=== PATIENT | female | born 1970 | race American Indian/Alaskan Native ===

== ENCOUNTER 2016-06-01 06:05 | Observation (INO) | payer OTHER ==
--- NOTE | 2016-05-26 10:05 | Anesthesia Consultation ---
Anesthesia Consult and Med Hx Date of service: 05/26/16 - Airway Anesthetic Teeth Evaluation: Good ROM Head & Neck: Adequate Mental/Hyoid Distance: Adequate Mallampati Class: Class II Intubation Access Assessment: Probably Good - Pre-Operative Health Status ASA Pre-Surgery Classification: ASA2 Proposed Anesthetic Plan: General Nerve Block: TAP - Pulmonary Hx Smoking: Yes (former 1/2 p x 25 years, quit 3 years ago) Hx Asthma: No COPD: No Hx Pneumonia: No (s/p PE 2014) Hx Sleep Apnea: (snoring) - Cardiovascular System Hx Hypertension: Yes (x 3 yrs) Hx Peripheral Vascular Disease: Yes (left LE swelling - venous insufficiency) - Central Nervous System Hx Psychiatric Problems: No - Endocrine Hx End Stage Renal Disease: No - Hematic Hx Anemia: Yes - Other Systems Hx Alcohol Use: Yes (occas) Hx Cancer: No Hx Obesity: Yes (BMI 36.1)
[2016-05-26 10:24] LABS: Basophils % (Auto) 0.7 % (0.0-1.8); Eosinophils % (Auto) 1.9 % (0.0-4.3); Mean Corpuscular HGB Conc 28 % (30-34); Platelet Count 467 K/mm3 (140-440); Red Blood Count 4.42 M/mm3 (3.65-5.03); White Blood Count 8.4 K/mm3 (4.5-11.0)
[2016-05-26 10:26] LABS: Hematocrit 26.4 % (30.3-42.9); Hemoglobin 7.3 gm/dl (10.1-14.3); Mean Corpuscular Hemoglobin 17 pg (28-32); Mean Corpuscular Volume 60 fl (79-97); Red Cell Distribution Width 20.4 % (13.2-15.2)
--- NOTE | 2016-05-31 17:28 | History and Physical Report ---
History of Present Illness Date of examination: 05/31/16 Date of admission: 06/01/2016 Chief complaint: dysfunctional bleeding and anemia History of present illness: 46y/o with symptomatic uterine fibroids and dysfunctional uterine bleeding. The patient's vaginal bleeding has been so significant that she has developed a significant iron deficiency anemia that has not been controlled with iron therapy. She also reports significant pain during her menses reports her menses is prolonged with the passage of clots and flooding. The patient has elected to undergo definitive surgical management Past History Past Medical History: hypertension, other (pulmonary embolism; uterine fibroids) Past Surgical History: no surgical history [employer] History: herpes, trichomonas Social history: single - Obstetrical History : 4 Para: 2 Hx # Term Pregnancies: 1 Number of Pregnancies: 1 Spontaneous Abortions: 0 Induced : 2 Number of Living Children: 2 Medications and Allergies Allergies Allergy/AdvReac Type Severity Reaction Status Date / Time No Known Allergies Allergy Verified 05/25/16 16:52 Home Medications Medication Instructions Recorded Confirmed Last Taken Type Lisinopril [Zestril TAB] 20 mg PO QDAY 12/26/14 05/25/16 02/01/16 History Ibuprofen [Motrin] 600 mg PO Q8H PRN #30 tablet 02/01/16 05/25/16 Unknown Rx RX: Aspirin 81 mg PO QDAY 02/01/16 05/25/16 Unknown History Iron Carb,Gl/FA/B12/C/Docusate 1 each PO DAILY 05/25/16 05/25/16 Unknown History [Ferralet 90 Dual-Iron Tablet] Active Meds: Active Medications Celecoxib (Celebrex) 200 mg PO PREOP NR Stop: 06/01/16 23:59 Famotidine (Pepcid) 20 mg IV PREOP NR Stop: 06/01/16 23:59 Fentanyl (Sublimaze) 100 mcg IV ONCE NR Stop: 06/01/16 23:59 Gabapentin (Neurontin) 600 mg PO PREOP NR Stop: 06/01/16 23:59 Lactated Ringer's (Lactated Ringers) 1,000 mls @ 100 mls/hr IV DIRECT ALVA Sodium Chloride (Nacl 0.9% 500 Ml) 500 mls @ 0 mls/hr IV ONCE NR PRN Reason: As Directed Stop: 05/31/16 23:59 Lidocaine (Xylocaine 1% 20 Ml) 10 ml INFILTRATI PREOP NR Stop: 06/01/16 23:59 Midazolam HCl (Versed) 2 mg IV PREOP NR Stop: 06/01/16 23:59 Sodium Chloride (Nacl P/F Vial (10 Ml)) 1 ml INFILTRATI PREOP NR Stop: 06/01/16 23:59 Review of Systems All systems: negative Constitutional: fatigue, weakness Genitourinary: vaginal bleeding, pelvic pain - Vital Signs Vital signs: Vital Signs Temp Pulse Resp BP 97.3 F L 74 14 140/88 05/26/16 09:20 05/26/16 09:20 05/26/16 09:20 05/26/16 09:20 Temp Pulse Resp BP Pulse Ox 97.3 F L 74 14 140/88 05/26/16 09:20 05/26/16 09:20 05/26/16 09:20 05/26/16 09:20 - Physical Exam Breasts: Positive: deferred Cardiovascular: Regular rate Lungs: Positive: Clear to auscultation Abdomen: Positive: normal appearance Uterus: Positive: other (enlarged with multiple masses) Results Result Diagrams: 05/26/16 09:35 All other labs normal. Assessment and Plan - Patient Problems (1) Leiomyoma Current Visit: Yes Status: Acute Plan to address problem: Scheduled for robotic hysterectomy and bilateral salpingectomy (2) Dysfunctional uterine bleeding Current Visit: Yes Status: Acute (3) Iron deficiency anemia Current Visit: Yes Status: Acute (4) Dysmenorrhea Current Visit: Yes Status: Acute
[~2016-06-01 06:05] MED LIST: ANCEF/STERILE WATER 2 GM/20 ML 20 ML IV SCH; NACL 0.9% 500 ML 500 ML IV NR; NEURONTIN PO NR
--- NOTE | 2016-06-01 06:52 | Anesthesia Day of Surgery ---
Anesthesia Day of Surgery - Day of Surgery Patient Examined: Yes Patient H&P Reviewed: Yes Patient is NPO: Yes
[2016-06-01] MEDS ORDERED: DECADRON ONE (06:54)
[2016-06-01] MEDS ORDERED: MARCAINE-EPI 0.5%-1:200,000 INFILTRATI ONE (06:54)
[2016-06-01] MEDS ORDERED: MARCAINE-EPI/PF 0.5%-1:200,000 INFILTRATI ONE (06:54)
[2016-06-01] MEDS ORDERED: XYLOCAINE 1% 20 mL INFILTRATI NR (07:00)
[2016-06-01] MEDS ORDERED: NACL P/F VIAL (10 ML) INFILTRATI NR (07:00)
[2016-06-01] MEDS ORDERED: LACTATED RINGERS 1,000 ML IV SCH (07:00)
[2016-06-01] MEDS ORDERED: MARCAINE 0.5% INFILTRATI NR (07:00)
[2016-06-01] MEDS ORDERED: SUBLIMAZE IV NR (07:00)
[2016-06-01] MEDS ORDERED: PEPCID IV NR (07:00)
[2016-06-01] MEDS: VERSED IV NR ×3 (07:02→07:12)
[2016-06-01] MEDS ORDERED: ZOFRAN IV PRN (07:17)
[2016-06-01] MEDS ORDERED: ZEMURON IV ONE (07:28)
[2016-06-01] MEDS ORDERED: XYLOCAINE MPF 2% ONE (07:28)
[2016-06-01] MEDS ORDERED: DIPRIVAN 10 MG/ML IV ONE (07:29)
[2016-06-01] MEDS ORDERED: NEOSPORIN GU IR ONE (09:20)
[2016-06-01] MEDS ORDERED: NACL 0.9% IR ONE ×2 (09:20)
[2016-06-01] MEDS ORDERED: ROBINUL ONE (09:29)
[2016-06-01] MEDS ORDERED: ZOFRAN ONE (09:29)
[2016-06-01] MEDS ORDERED: BLOXIVERZ ONE (09:29)
--- NOTE | 2016-06-01 10:01 | Operative Report ---
Operative Report Operative Report: Date of surgery: 06/01/2016 Preoperative diagnoses: Symptomatic uterine fibroids; dysfunctional uterine bleeding; dysmenorrhea; Anemia Postoperative diagnoses: Same as above Procedure: Robotic hysterectomy; bilateral salpingectomy Surgeon: Anne Sandoval M.D. Scheduling Coordinator: Wyatt Rogers Anesthesia: Gen. endotracheal anesthesia Estimated blood loss: 50 mL Pathology: Uterus, cervix, bilateral tubes Indication: 46-year-old with a history of symptomatic uterine fibroids. The patient also experienced significant dysfunctional uterine bleeding which subsequently caused her on deficiency anemia. The patient was transfused 2 units of blood preoperatively secondary to her anemia. Procedure: The patient was taken to the operating room and given general endotracheal anesthesia without complication. She is prepped and draped in a normal sterile fashion. A bivalve speculum was placed in the patient's vagina and a single- tooth tenaculum placed on the anterior lip of the cervix. The uterus was sounded with the uterine sound. A [employer] uterine manipulator was placed in the bivalve speculum was then removed. Attention was then turned to the patient's abdomen where a millimeter supra umbilical skin incision was then made. A Veress needle was placed and peritoneal entry was verified water-filled syringe. Insufflation of the peritoneal cavity was performed with CO2 gas. The 12 mm trocar was then placed under direct visualization. An additional 8 mm trocar was placed on the patient's left and right lateral side just opposite of the supraumbilical trocar. An additional 5 mm right lateral trocar was then placed as the accessory port. The patient was then placed in steep Trendelenburg. The da Laya robot was then engaged. A fenestrated forcep was placed in arm 2 and a vessel sealer was placed in arm 1. The surgeon then transferred to the surgical console. The mesosalpinx was then isolated on the right. The vessel sealer was used to coagulate the mesosalpinx which was then transected. The tube was transected from the ovary. The tubo-ovarian ligament was then coagulated and transected. The round ligament was then coagulated and transected also. The vesicouterine peritoneum was then entered from the patient 's right side. The uterine vessels were then coagulated with the vessel sealer. The vessels were then transected . Attention was then turned to the patient's left side where the tubo-ovarian ligament and mesosalpinx were again isolated coagulated and transected. The vesical peritoneum was then entered from the left and joined in the midline. Peritoneum was reflected off of the lower uterine segment. Uterine vessels were then coagulated and then transected. The blood supply to the uterus was adequately contained, a posterior colpotomy was made. The V care ring was visualized. Posterior colpotomy was created with the monopolar scissors. The incision was continued circumferentially until anterior colpotomy was made. The cervix and uterus were amputated from the vaginal cuff. The surgeon's then left the console in order to remove the uterus vaginally. The cervix was grasped with a single toothed tenaculum. The cervix was then bivalved. Morcellation of the uterus was performed vaginally. The uterus was then removed along with the tubes bilaterally through the vagina and a warm laparotomy sponge was placed and maintain the pneumoperitoneum. Surgeon then transferred back to this the surgical console. The vaginal cuff was then closed robotically in a running fashion with V lock suture. Irrigation of the pelvis was performed. Tisseel was applied to the incision. The supraumbilical 12 mm trocar site was closed with the Guido Santiago device. The skin was then reapproximated with 4-0 Monocryl. The tissue was sent to pathology which included the cervix, uterus, bilateral tubes. The patient was then successfully extubated. She was then taken to the recovery room in stable condition. All sponge laps and needle counts were correct x2.
[2016-06-01] MEDS ORDERED: NARCAN 0.4 MG/1 ML IV PRN (10:07)
[2016-06-01] MEDS ORDERED: TYLENOL PO PRN (10:07)
[2016-06-01] MEDS ORDERED: PERCOCET 5/325 PO PRN (10:07)
[2016-06-01] MEDS ORDERED: MILK OF MAGNESIA PO PRN (10:07)
[2016-06-01] MEDS ORDERED: MORPHINE PCA 30MG/30ML IV SCH (11:00)
[2016-06-01] MEDS ORDERED: D5LR 1,000 ML IV SCH (11:00)
[2016-06-01] MEDS ORDERED: LACTATED RINGERS 1,000 ML ONE (11:06)
[2016-06-01] MEDS: DILAUDID IV PRN ×2 (11:52→12:10)
[2016-06-01] MEDS ORDERED: DILAUDID ONE (11:52)
--- NOTE | 2016-06-01 12:26 | Post Anesthesia Evaluation ---
- Post Anesthesia Evaluation Patient Participated: Yes Airway Patent: Yes Stable Respiratory Function: Yes Temp > 96.8F: Yes Pain Manageable: Yes Adequeate Hydration: Yes Anesthesia Complications: No Block Receding Appropriately: Not Applicable
[2016-06-01] MEDS: LOVENOX SUB-Q SCH (22:45)
[2016-06-01] MEDS: MOTRIN PO PRN (22:45)
[2016-06-02] MEDS ORDERED: PEPCID PO SCH (01:00)
[2016-06-02] MEDS: MOTRIN PO PRN (05:30)
--- NOTE | 2016-06-02 07:06 | Admit Criteria Form ---
Admission Criteria Documentation: AMBULATORY SURGERY EXCEPTION CRITERIA Ambulatory Surgery Exception Criteria ( Place 'X' for any and all applicable criteria): Surgery or procedure performed on ambulatory basis may require inpatient stay for[A] ANY ONE of the following(1)(2)(3)(4)(5)(6)(7)(8)(9): [X] I. A preoperative situation, condition, or finding that warrants inpatient stay as indicated by ANY ONE of the following: [X] a) Inpatient care needed because of severity of a disease or condition rather than the surgery (eg, severe cardiac or respiratory disease, severe infection) (15) (16 ) (17) (18) [] b) Emergent procedure (eg, angioplasty for acute ischemia)(19) [] c) Complex surgical approach or situation as indicated by ANY ONE of the following(3): [] i) Open approach needed instead of usual endoscopic, transcatheter, or other less invasive procedure [] ii) Difficult approach because of previous operation [] iii) Airway monitoring required after open neck procedures(20)(21) [] iv) Large mass requiring unusually extensive dissection [] v) Additional complicating feature requiring inpatient care (eg, drain management)(22(23): [] d) Major surgery in a pt with high anesthetic risk as indicated by ANY ONE of the following (2)(3)(5)(7)(8): [] i) ASA risk class III or higher (severe systemic disease impairing function) [D] [] ii) Advanced age (eg, older than 85 years)(14)(24) [] iii) Symptomatic heart failure(25) [] iv) Symptomatic asthma or COPD(8)(21) [] v) Morbid obesity with hemodynamic or respiratory problems(20)( 21)(26)(27) [] vi) Obstructive sleep apnea(20)(21) [] vii) Former premature infants who are younger than 60 weeks [] viii) High risk for severe postoperative abnormalities (eg, severe postoperative hypocalcemia after parathyroidectomy for severe hyperparathyroidism)(27)( 28) [] ix) Unstable angina(25) [] e) Drug-related risk requiring inpatient stay as indicated by ANY ONE of the following(5)(10)(14)(32)(33) [] i) Procedure requires discontinuing drugs or other therapy (eg , antiarrhythmic medication, antiseizure medication), which necessitates inpatient observation or treatment.(18)(31) [] ii) Major surgery and high risk drug use as indicated by ANY ONE of the following: [] 1) Active abuse of cocaine or similar drug [] 2) Monoamine oxidase inhibitor use [] 3) Other drug identified as posing risk [] f) Inadequate outpatient care situation as indicated by ANY ONE of the following(5)(10)(14)(32)(33) [] i) Patient lives remote from medical facility and procedure has urgent complication potential, and temporary nearby residence cannot be arranged [] ii) Patient will have postprocedure incapacitation and inadequate assistance at home, or alternative level of care cannot be arranged. [] iii) Patient will have long general anesthesia or procedure side effect resolution time, and competent person to stay with patient on first postoperative night at home or alternative level of care cannot be arranged. []iv) Other inadequate outpatient situation that cannot be handled by other means [X] II. A perioperative event, condition, or finding that warrants inpatient stay as indicated by ANY ONE of the following (1)(2)(3): [] a) Inadequate physiologic recovery: cardiovascular, respiratory, or hemodynamic status not normal or near preoperative baseline(18) [] b) Hemodynamic instability [] c) Patient not alert with near normal or baseline mental status [] d) Temperature not normal or as expected and not appropriate for outpatient treatment of condition [] e) Ambulatory or appropriate activity level status not yet achieved post procedure [E](34)(35)(36) [] f) Operative site not appropriate (eg, unexpected or excessive drainage or bleeding) [X] g) Postoperative effects not resolved or adequately managed (eg, significant pain or vomiting not appropriate for outpatient or next level of care)(10)(12) [] h) Complicating features requiring inpatient care as indicated by ANY ONE of the following(37): [] i) Severe complications of procedure (eg, bowel injury, airway compromise, vascular injury,severe hemorrhage) [] ii) Extensive (eg, dissection far beyond usual scope of procedure ) or prolonged (eg, 120 minutes beyond usual) surgery needed requiring inpatient postoperative care [] iii) Conversion to an open or complex procedure that requires inpatient care (eg, open vs laparoscopic cholecystectomy, abdominal vs vaginal hysterectomy)(38) [] iv) Comorbid condition or test result identified during or post procedure that requires inpatient care (7) [] v) Malignant hyperthermia(30) [] vi) Other complicating feature requiring inpatient care(22)(23) Inpatient stay may be needed until ALL of the following are present (1)(2)(3)(4) (5)(6)(10)(14)(33)(40): []a) Physiologic recovery: cardiovascular, respiratory, and hemodynamic status normal or near preoperative baseline []b) Hemodynamic stability []c) Patient alert, with near normal or baseline mental status []d) Temperature appropriate: patient afebrile or temperature appropriate for outpt treatment of condition []e) Activity level appropriate: ambulatory or appropriate activity level post procedure []f) Operative site appropriate as indicated by ALL of the following: []i) Site dry or with expected drainage []ii) Any blood noted is as expected for procedure. []g) Postoperative effects resolved or managed as indicated by ALL of the following: []i) Pain management appropriate for outpatient (or next level of) care(10) []ii) Minimal nausea and vomiting: if present, successfully treated with oral medication(12) []iii) Headache, dizziness, or drowsiness (if present) are mild. []h) Voiding status acceptable as indicated by ANY ONE of the following: []i) Voiding spontaneously []ii) No voiding but instructions given for follow-up in 6 to 8 hours []iii) Urinary catheter in place, and instructions given for follow-up []i) Complicating features requiring inpatient care manageable at a lower level of care(37) []j) Comorbid conditions manageable at a lower level of care(37) The original [employer] [facility] content created by [employer] has been revised. The portions of the content which have been revised are identified through the use of italic text or in bold, and [facility] has neither reviewed nor approved the modified material. All other unmodified content is copyright [employer] [facility]. Please see references footnoted in the original [employer] [facility] edition 2016 Admission Criteria Met: Yes
[2016-06-02 07:20] LABS: Hematocrit 32.8 % (30.3-42.9); Hemoglobin 9.3 gm/dl (10.1-14.3)
[2016-06-02] MEDS: LOVENOX SUB-Q SCH (10:19)
--- NOTE | 2016-06-02 15:32 | Progress Note ---
Subjective Date of service: 06/02/16 Interval history: 1st POD after robotic hysterectomy Patient is in the bed, comfortable. Pain is well controlled with pain meds. Ambulated well. No nausea or vomiting. No anesthesia complications Objective - Constitutional Vitals: Vital Signs - 12hr 06/02/16 06/02/16 06/02/16 04:00 04:35 05:30 Temperature 98.4 F Pulse Rate [ 70 Right] Respiratory 18 20 16 Rate Blood Pressure 142/77 [Right Arm] 06/02/16 06/02/16 06/02/16 06:00 07:10 08:32 Temperature 98.4 F Pulse Rate [ 76 Right] Respiratory 18 18 18 Rate Blood Pressure 101/58 [Right Arm] 06/02/16 11:46 Temperature 99.0 F Pulse Rate [ 74 Right] Respiratory 18 Rate Blood Pressure 126/70 [Right Arm] - Labs CBC & Chem 7: 06/02/16 05:52 Labs: Abnormal lab results 05/26/16 06/02/16 Range/Units 09:35 05:52 Hgb 9.3 L (10.1-14.3) gm/dl Crossmatch See Detail
--- NOTE | 2016-06-02 17:05 | Progress Note ---
Assessment and Plan - Patient Problems (1) Leiomyoma Current Visit: Yes Status: Acute Plan to address problem: Patient doing well Discharge home (2) Dysfunctional uterine bleeding Current Visit: Yes Status: Acute (3) Iron deficiency anemia Current Visit: Yes Status: Acute (4) Dysmenorrhea Current Visit: Yes Status: Acute Subjective - Subjective Date of service: 06/02/16 Interval history: Patient reports doing well. She has tolerated her diet without complication. Her pain is currently being well controlled. Patient reports: appetite normal, voiding normally, pain well controlled Objective - Vital Signs Latest vital signs: Vital Signs Temp Pulse Resp BP 06/02/16 11:46 99.0 F 74 18 126/70 06/02/16 08:32 98.4 F 76 18 101/58 06/02/16 07:10 18 06/02/16 06:00 18 06/02/16 05:30 16 06/02/16 04:35 98.4 F 70 20 142/77 06/02/16 04:00 18 06/02/16 02:00 18 06/02/16 00:00 98.8 F 73 20 136/72 06/01/16 22:45 18 06/01/16 22:00 18 06/01/16 20:00 98.4 F 74 20 143/74 Intake and Output 06/02/16 06/02/16 06/02/16 06:59 14:59 22:59 Intake Total 1355 440 Output Total 1500 250 Balance -145 190 Intake: IV 875 D5lr 1,000 ml @ 125 mls/ 875 hr IV DIRECT ALVA Rx#: [id number] Oral 480 320 Intake, Free Water 120 Output: Urine 1500 250 Indwelling Catheter 1500 Void 250 Other: Total, Intake Amount 240 200 Total, Output Amount 600 250 - Exam Abdomen: Present: normal appearance, soft Incision: Present: normal, dry - Labs Labs: Abnormal lab results 05/26/16 06/02/16 Range/Units 09:35 05:52 Hgb 9.3 L (10.1-14.3) gm/dl Crossmatch See Detail
--- NOTE | 2016-06-02 17:07 | Discharge Summary ---
Providers - Providers Date of Admission: 06/01/16 10:08 Date of discharge: 06/02/16 Attending physician: VIKI BORDEN Primary care physician: AMARJIT WOLF Hospitalization Reason for admission: other (symptomatic uterine fibroids) Procedure: other (robotic hysterectomy and bilateral salpingectomy) Incision: normal, dry Discharge diagnosis: other (symptomatic uterine fibroids; dysfunctional uterine bleeding) Hospital course: The patient was admitted the day of surgery and underwent a robotic hysterectomy and bilateral salpingectomy. Preoperatively the patient was transfused 2 units of packed red blood cells secondary to severe iron deficiency anemia. Please see operative note for details of surgery. Her postoperative course was uneventful. The patient was discharged home on anticoagulation therapy secondary to her history of pulmonary embolism Condition at discharge: Good Disposition: DISCHARGED TO HOME OR SELFCARE - Discharge Diagnoses (1) Leiomyoma Status: Acute (2) Dysfunctional uterine bleeding Status: Acute (3) Iron deficiency anemia Status: Acute (4) Dysmenorrhea Status: Acute Plan - Discharge Medications Prescriptions: Enoxaparin [Lovenox] 40 mg SQ QDAY #30 syringe Ibuprofen [Motrin] 800 mg PO Q8HR PRN #60 tablet PRN Reason: Pain Oxycodone HCl/Acetaminophen [Percocet 10/325 mg] 1 each PO Q6HR PRN #45 tablet PRN Reason: Pain - Provider Discharge Summary Activity: no sex for 6 weeks, no heavy lifting 4 weeks, no strenuous exercise Diet: routine Instructions: routine Additional instructions: [] Smoking cessation referral if applicable(refer to patient education folder for contact #) [] Refer to [facility] Booklet Call your doctor immediately for: * Fever > 100.5 * Heavy vaginal bleeding ( >1 pad per hour) * Severe persistent headache * Shortness of breath * Reddened, hot, painful area to leg or breast * Drainage or odor from incision. * Keep incision clean and dry at all times and follow doctor's instructions regarding bathing/showering Follow-up in [address] Barillas
[2016-06-02 17:19] VITALS: BP 126/84
[2016-06-03] MEDS ORDERED: LOVENOX SUB-Q SCH (10:00)
== END 2016-06-02 18:00 | disposition home or self-care (01) ==
LOC: OR 06:05 → OB 10:08
PROVIDERS: ADMIT Obstetrics & Gynecology; ATTEND Obstetrics & Gynecology
DX: D21.9 Benign neoplasm of connective and other soft tissue, unspecified (principal); N93.8 Other specified abnormal uterine and vaginal bleeding; D50.9 Iron deficiency anemia, unspecified; N94.6 Dysmenorrhea, unspecified; I10 Essential (primary) hypertension
CPT/HCPCS: 36415; 58554; 64450; 84703; 85014; 85018; 85025; 86850; 86900; 86901; 86920; 88305; 88307; 96372; 96374; 96375; A4217; C9250; G0378; J0690; J1100; J1170; J1650; J2250; J2270; J2405; J2704; J2710; J3010; J7120; J7121; P9016

== ENCOUNTER 2019-09-14 11:05 | Emergency (ER) | payer SELFPAY ==
--- NOTE | 2019-09-14 14:12 | Vascular Lab Report ---
DUPLEX DOPPLER LOWER EXTREMITY VEINS, RIGHT INDICATION: pain swelling to right thigh. TECHNIQUE: Duplex doppler imaging was performed through the veins of the right lower extremity using venous comp ression and other maneuvers. COMPARISON: None available. FINDINGS: Common Femoral vein: Negative. Superficial Femoral vein: Negative. Popliteal vein: Negative. Calf veins: Negative. Additional findings: None. IMPRESSION: 1. No sonographic evidence for DVT in the right lower extremity. Signer Name: Juan Stewart MD Signed: 09/14/2019 2:07 PM Workstation Name: [employer]
--- NOTE | 2019-09-14 15:04 | Emergency Department Report ---
ED General Adult HPI - General Chief complaint: Extremity Injury, Lower Stated complaint: RIGHT LEG PAIN PUI?: No Time Seen by Provider: 09/14/19 11:58 Source: patient Mode of arrival: Ambulatory Limitations: No Limitations - History of Present Illness Initial comments: This is a 49-year-old female presents to the ED today complaining of right hip pain for the past day. She denies any injury or trauma to the leg. Patient states that pain is tingling sensation and sometimes itching in nature. Patient states she took Benadryl with no relief. Patient noted that she did have a DVT some years ago that ended up being a PE. Patient scared that this could be what same thing. Patient denies any shortness of breath, fever, heavy lifting. Patient states she has been more docile since she has been laid off work. She denies difficulty walking or inability to walk. She states since that she noticed lower back pain that began this morning. - Related Data Home Medications Medication Instructions Recorded Confirmed Last Taken lisinopriL [Zestril TAB] 20 mg PO QDAY 12/26/14 05/25/16 06/01/16 05:00 Aspirin 81 mg PO QDAY 02/01/16 05/25/16 1 Week Ago ~05/25/16 Iron Carb,Gl/FA/B12/C/Docusate 1 each PO DAILY 05/25/16 05/25/16 06/01/16 05:00 [Ferralet 90 Dual-Iron Tablet] Previous Rx's Medication Instructions Recorded Last Taken Type Ibuprofen [Motrin] 600 mg PO Q8H PRN #30 tablet 02/01/16 1 Week Ago Rx ~05/25/16 Enoxaparin [Lovenox] 40 mg SQ QDAY #30 syringe 06/02/16 Unknown Rx Ibuprofen [Motrin] 800 mg PO Q8HR PRN #60 tablet 06/02/16 Unknown Rx Oxycodone HCl/Acetaminophen 1 each PO Q6HR PRN #45 tablet 06/02/16 Unknown Rx [Percocet 10/325 mg] Diclofenac Dr [Brenda Bain] 75 mg PO BID #30 tablet 09/14/19 Unknown Rx Allergies Allergy/AdvReac Type Severity Reaction Status Date / Time No Known Allergies Allergy Verified 05/25/16 16:52 ED Review of Systems ROS: Stated complaint: RIGHT LEG PAIN Other details as noted in HPI Comment: All other systems reviewed and negative ED Past Medical Hx - Past Medical History Previous Medical History?: Yes Hx Hypertension: Yes (x 3 yrs) Hx Congestive Heart Failure: No Hx Diabetes: No Hx Pulmonary Embolism: Yes (2014) Hx Asthma: No Hx COPD: No Hx HIV: No Additional medical history: Blood Clot in Lung 11/2014 - Surgical History Past Surgical History?: No - Social History Smoking Status: Current Every Day Smoker Substance Use Type: Alcohol - Medications Home Medications: Home Medications Medication Instructions Recorded Confirmed Last Taken Type lisinopriL [Zestril TAB] 20 mg PO QDAY 12/26/14 05/25/16 06/01/16 05:00 History Aspirin 81 mg PO QDAY 02/01/16 05/25/16 1 Week Ago History ~05/25/16 Ibuprofen [Motrin] 600 mg PO Q8H PRN #30 tablet 02/01/16 05/25/16 1 Week Ago Rx ~05/25/16 Iron Carb,Gl/FA/B12/C/Docusate 1 each PO DAILY 05/25/16 05/25/16 06/01/16 05:00 History [Ferralet 90 Dual-Iron Tablet] Enoxaparin [Lovenox] 40 mg SQ QDAY #30 syringe 06/02/16 Unknown Rx Ibuprofen [Motrin] 800 mg PO Q8HR PRN #60 tablet 06/02/16 Unknown Rx Oxycodone HCl/Acetaminophen 1 each PO Q6HR PRN #45 tablet 06/02/16 Unknown Rx [Percocet 10/325 mg] Diclofenac Dr [Voltaren Dr] 75 mg PO BID #30 tablet 09/14/19 Unknown Rx ED Physical Exam - General Limitations: No Limitations General appearance: alert, in no apparent distress - Head Head exam: Present: atraumatic, normocephalic - Eye Eye exam: Present: normal appearance - ENT ENT exam: Present: mucous membranes moist - Neck Neck exam: Present: normal inspection - Respiratory Respiratory exam: Present: normal lung sounds bilaterally. Absent: respiratory distress - Cardiovascular Cardiovascular Exam: Present: regular rate, normal rhythm. Absent: systolic murmur, diastolic murmur, rubs, gallop - GI/Abdominal GI/Abdominal exam: Present: soft, normal bowel sounds - Extremities Exam Extremities exam: Present: normal inspection - Back Exam Back exam: Present: normal inspection - Neurological Exam Neurological exam: Present: alert, oriented X3 - Psychiatric Psychiatric exam: Present: normal affect, normal mood - Skin Skin exam: Present: warm, dry, intact, normal color. Absent: rash ED Course Vital Signs 09/14/19 11:09 Temperature 98.3 F Pulse Rate 72 Respiratory 20 Rate Blood Pressure 155/81 O2 Sat by Pulse 100 Oximetry ED Medical Decision Making - Radiology Data Radiology results: report reviewed, image reviewed No signs of DVT. No abnormality - Medical Decision Making 49-year-old female presents with sciatic pain of the right thigh. Doppler ultrasounds were completed and was normal. Discussed this findings with the patient. Discussed with patient follow-up with primary care physician. Discussed continued pain relief medication. Patient understand instructions and states will follow-up. Critical care attestation.: If time is entered above; I have spent that time in minutes in the direct care of this critically ill patient, excluding procedure time. ED Disposition Clinical Impression: Myalgia, Sciatic leg pain Disposition: TO HOME OR SELFCARE Is pt being admited?: No Does the pt Need Aspirin: No Condition: Stable Instructions: Trigger Point Pain (ED), Lumbar Radiculopathy (ED), Musculoskeletal Pain (ED) Additional Instructions: Make sure to follow up with the primary care physician as discussed. Take all your medications as you've been prescribed. If you have any worsening symptoms or develop new symptoms please return to ED immediately. Prescriptions: Bladimir Bain [Voltaren ] 75 mg PO BID #30 tablet Referrals: AMARJIT WOLF MD [Primary Care Provider] - 3-5 Days Forms: Work/School Release Form(ED) Time of Disposition: 15:09
== END 2019-09-14 15:30 | disposition home or self-care (01) ==
LOC: ED 11:05
DX: M54.31 Sciatica, right side (principal); I10 Essential (primary) hypertension; F17.200 Nicotine dependence, unspecified, uncomplicated; Z86.711 Personal history of pulmonary embolism; Z79.01 Long term (current) use of anticoagulants; Z79.899 Other long term (current) drug therapy

== ENCOUNTER 2021-01-02 11:36 | Emergency (ER) | payer OTHER, SELFPAY ==
[2021-01-02 12:29] VITALS: BP 141/79
--- NOTE | 2021-01-02 14:46 | Emergency Department Report ---
ED Extremity Problem HPI - General Chief complaint: Extremity Injury, Lower Stated complaint: POSS BLOOD CLOT Time Seen by Provider: 01/02/21 14:12 Source: patient Mode of arrival: Ambulatory Limitations: No Limitations - History of Present Illness Initial comments: Patient is a 50-year-old female presents emergency room complaints of left leg pain that began 3 days ago. She states that 3 days ago she accidentally dropped a bottle of essential oil on her left dorsal foot. She states that the glass did not break. She states that she began having some swelling to the foot which radiated to the ankle. She states then she noticed some discomfort to her left calf and thought she might have some swelling to her left lower leg. Patient states that she was concerned due to having a history of a PE in 2014. She states that when she had the PE she was on control at that time. Patient is not on any control or hormone replacement therapy and is not taking any hormones. She has had no recent long car or plane ride. No recent surgery. Past medical history of hypertension. No allergies to medications. - Related Data Home Medications Medication Instructions Recorded Confirmed Last Taken lisinopriL [Zestril TAB] 20 mg PO QDAY 12/26/14 05/25/16 06/01/16 05:00 Aspirin 81 mg PO QDAY 02/01/16 05/25/16 1 Week Ago ~05/25/16 Iron Carb,Gl/FA/B12/C/Docusate 1 each PO DAILY 05/25/16 05/25/16 06/01/16 05:00 [Ferralet 90 Dual-Iron Tablet] Previous Rx's Medication Instructions Recorded Last Taken Type Ibuprofen [Motrin] 600 mg PO Q8H PRN #30 tablet 02/01/16 1 Week Ago Rx ~05/25/16 Enoxaparin [Lovenox] 40 mg SQ QDAY #30 syringe 06/02/16 Unknown Rx Ibuprofen [Motrin] 800 mg PO Q8HR PRN #60 tablet 06/02/16 Unknown Rx Oxycodone HCl/Acetaminophen 1 each PO Q6HR PRN #45 tablet 06/02/16 Unknown Rx [Percocet 10/325 mg] Diclofenac Dr [Brenda Bain] 75 mg PO BID #30 tablet 09/14/19 Unknown Rx Naproxen 375 mg PO BID PRN #14 tablet 01/02/21 Unknown Rx Allergies Allergy/AdvReac Type Severity Reaction Status Date / Time No Known Allergies Allergy Verified 05/25/16 16:52 ED Review of Systems ROS: Stated complaint: POSS BLOOD CLOT Other details as noted in HPI Comment: All other systems reviewed and negative ED Past Medical Hx - Past Medical History Previous Medical History?: Yes Hx Hypertension: Yes (x 3 yrs) Hx Congestive Heart Failure: No Hx Diabetes: No Hx Pulmonary Embolism: Yes (2014) Hx Asthma: No Hx COPD: No Hx HIV: No Additional medical history: Blood Clot in Lung 11/2014 - Surgical History Past Surgical History?: Yes Additional Surgical History: Partial hysterectomy - Social History Smoking Status: Current Every Day Smoker Substance Use Type: Alcohol - Medications Home Medications: Home Medications Medication Instructions Recorded Confirmed Last Taken Type lisinopriL [Zestril TAB] 20 mg PO QDAY 12/26/14 05/25/16 06/01/16 05:00 History Aspirin 81 mg PO QDAY 02/01/16 05/25/16 1 Week Ago History ~05/25/16 Ibuprofen [Motrin] 600 mg PO Q8H PRN #30 tablet 02/01/16 05/25/16 1 Week Ago Rx ~05/25/16 Iron Carb,Gl/FA/B12/C/Docusate 1 each PO DAILY 05/25/16 05/25/16 06/01/16 05:00 History [Ferralet 90 Dual-Iron Tablet] Enoxaparin [Lovenox] 40 mg SQ QDAY #30 syringe 06/02/16 Unknown Rx Ibuprofen [Motrin] 800 mg PO Q8HR PRN #60 tablet 06/02/16 Unknown Rx Oxycodone HCl/Acetaminophen 1 each PO Q6HR PRN #45 tablet 06/02/16 Unknown Rx [Percocet 10/325 mg] Diclofenac Dr [Voltaren Dr] 75 mg PO BID #30 tablet 09/14/19 Unknown Rx Naproxen 375 mg PO BID PRN #14 tablet 01/02/21 Unknown Rx ED Physical Exam - General Limitations: No Limitations General appearance: alert, in no apparent distress - Head Head exam: Present: atraumatic, normocephalic - Eye Eye exam: Present: normal appearance - ENT ENT exam: Present: mucous membranes moist - Respiratory Respiratory exam: Absent: respiratory distress, accessory muscle use - Extremities Exam Extremities exam: Present: other (no ttp of the LLE, no calf ttp, no deformity, no ecchymosis, no edema, neurovascularly intact) - Neurological Exam Neurological exam: Present: alert, oriented X3 - Psychiatric Psychiatric exam: Present: normal affect, normal mood - Skin Skin exam: Present: warm, dry, intact ED Course Vital Signs 01/02/21 01/02/21 12:27 17:24 Temperature 98.8 F Pulse Rate 71 76 Respiratory 18 Rate Blood Pressure 141/79 O2 Sat by Pulse 99 100 Oximetry ED Medical Decision Making - Radiology Data Radiology results: report reviewed Ordering Physician: LEE JEFF Date of Service: 01/02/21 Procedure(s): XR foot 3+V LT Accession Number(s): [id number] cc: LEE JEFF Fluoro Time In Minutes: LEFT FOOT 3 VIEW(S) INDICATION / CLINICAL INFORMATION: left foot pain COMPARISON: None available. FINDINGS: BONES / JOINT(S): No acute fracture or subluxation. No significant arthritis. Small accessory medial navicular ossicle. SOFT TISSUES: No significant abnormality. ADDITIONAL FINDINGS: None. Signer Name: Cristal Hernandez MD Signed: 01/02/2021 2:43 PM Workstation Name: [id number] Transcribed By: DT Dictated By: Jered Hernandez MD Electronically Authenticated By: Jered Hernandez MD Signed Date/Time: 01/02/211442 DD/ 1442 TD/TT: DUPLEX DOPPLER LOWER EXTREMITY VEINS, LEFT INDICATION / CLINICAL INFORMATION: left leg pain. TECHNIQUE: Duplex doppler imaging was performed through the veins of the left lower extremity using venous compression and other maneuvers. COMPARISON: None available. FINDINGS: LEFT COMMON FEMORAL VEIN: Negative. LEFT FEMORAL VEIN: Negative. LEFT POPLITEAL VEIN: Negative. LEFT CALF VEINS: Negative. ADDITIONAL FINDINGS: None. IMPRESSION: 1. No sonographic evidence for DVT in the left lower extremity. Signer Name: Cristal Hernandez MD Signed: 01/02/2021 4:00 PM Workstation Name: [id number] - Medical Decision Making Patient is a 50-year-old female presents emergency room complaints of left leg pain that began 3 days ago. She states that 3 days ago she accidentally dropped a bottle of essential oil on her left dorsal foot. She states that the glass did not break. She states that she began having some swelling to the foot which radiated to the ankle. She states then she noticed some discomfort to her left calf and thought she might have some swelling to her left lower leg. Patient states that she was concerned due to having a history of a PE in 2014. She states that when she had the PE she was on control at that time. Patient is not on any control or hormone replacement therapy and is not taking any hormones. She has had no recent long car or plane ride. No recent surgery. Past medical history of hypertension. No allergies to medications. Vitals are stable. No hypoxia, no tachycardia. On exam:no ttp of the LLE, no calf ttp, no deformity, no ecchymosis, no edema, neurovascularly intact. X-ray left foot: BONES / JOINT(S): No acute fracture or subluxation. No significant arthritis. Small accessory medial navicular ossicle. SOFT TISSUES: No significant abnormality. ADDITIONAL FINDINGS: None. Ultrasound left lower extremity:1. No sonographic evidence for DVT in the left lower extremity. Patient given prescription for naproxen. Advised patient Please take medication as prescribed as needed. Follow-up with a primary care doctor. Return to emergency room for any new or worsening symptoms. Critical care attestation.: If time is entered above; I have spent that time in minutes in the direct care of this critically ill patient, excluding procedure time. ED Disposition Clinical Impression: Left foot pain, Left leg pain Disposition: 01 HOME / SELF CARE / HOMELESS Is pt being admited?: No Does the pt Need Aspirin: No Condition: Stable Instructions: Foot Pain Additional Instructions: Please take medication as prescribed as needed. Follow-up with a primary care doctor. Return to emergency room for any new or worsening symptoms. Prescriptions: Naproxen 375 mg PO BID PRN #14 tablet PRN Reason: pain Referrals: AMARJIT WOLF MD [Primary Care Provider] - 2-3 Days Time of Disposition: 17:16 Print Language: [place]
--- NOTE | 2021-01-04 08:12 | Vascular Lab Report ---
DUPLEX DOPPLER LOWER EXTREMITY VEINS, LEFT INDICATION / CLINICAL INFORMATION: left leg pain. TECHNIQUE: Duplex doppler imaging was performed through the veins of the left lower extremity using v enous compression and other maneuvers. COMPARISON: None available. FINDINGS: LEFT COMMON FEMORAL VEIN: Negative. LEFT FEMORAL VEIN: Negative. LEFT POPLITEAL VEIN: Negative. LEFT CALF VEINS: Negative. ADDITIONAL FINDINGS: None. IMPRESSION: 1. No sonographic evidence for DVT in the left lower extremity. Signer Name: Cristal Hernandez MD Signed: 01/02/2021 5:00 PM Workstation Name: [id number]
== END 2021-01-02 17:30 | disposition home or self-care (01) ==
LOC: ED 11:36
DX: M79.672 Pain in left foot (principal); M79.605 Pain in left leg; I10 Essential (primary) hypertension
CPT/HCPCS: 99284